=== PATIENT | female | born 1995 | race Caucasian/White ===

== ENCOUNTER 2019-08-16 22:21 | Emergency (ER) | payer OTHER, MEDICAID, SELFPAY ==
[2019-08-16 22:25] VITALS: BP 125/82; PULSE 116; RESP 22; TEMP 36.2; O2SAT 99
--- NOTE | 2019-08-16 22:48 | PC.NURSE ---
for the last 10 minutes the patient has been wispering to self. when asked who she is talking to she becomes silent and stares at staff. Further questioning has the same result. patient will not communicate with staff. Once left alone patient begins to whisper to self. Patient is in saftey scrubs with sitter at doorway.
--- NOTE | 2019-08-16 22:55 | PC.NURSE ---
patient asked her name and she responded in a mubling and rambling way that her name is Pat Swift, birthday is 1995, Patient then stated no, that's not it, no, I dont know.
--- NOTE | 2019-08-16 23:03 | PC.NURSE ---
Patient asked to give us a urine sample. Patient provided sample. Sample sent to the lab.
[2019-08-16 23:07] LABS: Appearance Urine UA SL CLOUDY; Bilirubin Urine UA NEGATIVE (NEGATIVE); Color Urine UA YELLOW; Glucose Urine UA NEGATIVE (Negative); Ketones Urine UA NEGATIVE (NEGATIVE); Leukocyte Esterase Urine UA TRACE (NEGATIVE); Nitrite Urine UA NEGATIVE (Negative); Occult Blood Urine UA 3+ (Negative); Protein Urine UA TRACE (Negative); Specific Gravity Urine UA >=1.030 (1.000-1.035); Urobilinogen Urine UA 0.2 E.U./dL (0.2)
--- NOTE | 2019-08-16 23:09 | ED.PSYCH ---
HPI - Psych General Chief Complaint: Psychiatric Symptoms Stated Complaint: brought by [employer] Time Seen by Provider: 08/16/19 22:50 Source: police Mode of arrival: Ambulatory Limitations: no limitations and other (Altered mental status) History of Present Illness HPI Narrative: 24-year-old female arrived by police department. They were called because the patient was reported to be standing in front of 1 of the local businesses. Supported by police that she had provided the name but it seems that this name has changed several times. She also provided a date this seemed to change. They are unsure exactly what her name or date is. They do not know this individual from prior contacts here in the area. Patient could not give a specific reason why she was in the area. She has very tangential thought saying things that she was from [place]. Saying things about other individuals to include boyfriend and family in the area. Patient seemed very confused. There is no signs of trauma. She was brought to the emergency department. Police provided the [facility] paperwork. Patient unable to provide any HPI. She was unable to provide a name. She did stated date however the month and the year remained constant however the date of changed multiple times. Related Data Allergies Allergy/AdvReac Type Severity Reaction Status Date / Time No Allergy Information Allergy Verified 08/16/19 22:31 Available Review of Systems Review of Systems Narrative: Review of systems limited by patient's mental condition. They reported review of systems below is what she was able/willing to answer Cardiovascular Cardiovascular: Denies chest pain and Denies dyspnea Respiratory Respiratory: Denies dyspnea Gastrointestinal Gastrointestinal: Denies abdominal pain Patient History Medical History (Updated 08/17/19 @ 11:53 by Grisel Christy MD) Medical history unknown (Acute) Social History Smoking Status: Current every day smoker tobacco type: cigarettes Substance Use Type: does not use Exam Initial Vital Signs Initial Vital Signs: Vital Signs Temperature 97.1 F L 08/16/19 22:25 Pulse Rate 116 H 08/16/19 22:25 Respiratory Rate 22 08/16/19 22:25 Blood Pressure 125/82 08/16/19 22:25 Pulse Oximetry 99 08/16/19 22:25 Const General: disheveled Orientation: awake and confused Limitations: altered mental status HENMT Head: normal to inspection and normocephalic Resp Effort & Inspection: normal respiratory effort Cardio Rate: tachycardic Skin Other: Multiple lesions in various stages of healing on her face and upper extremities no signs of infections Neuro General: alert and awake Cognition: abnormal cognition Speech: other (Pressured speech) Gait: normal gait Extrem General: normal to inspection Psych Appearance: disheveled Speech and Movement: agitated, pressured speech and restless Mood: euphoric mood, manic mood, paranoid, labile mood, angry and irritable mood Affect: animated and anxious affect Attitude: cooperative (Did allow us to draw blood obtain a urine sample) Thought Process: flight of ideas, illogical, perseverating and tangential Judgment: poor Course Orders Ordered: ED Orders 08/16/19 23:00 Test Urine Stat Urinalysis and Microscopic Stat urine tox [Urine Drug Screen, Rapid] Stat 08/16/19 23:02 Urine Drug Screen, Rapid Stat 08/16/19 23:09 Acetaminophen Stat Complete Blood Count AUTO DIFF Stat Comprehensive Metabolic Panel Stat Ethanol (ETOH) Stat Salicylate Stat Thyroid Stimulating Hormone Stat 08/16/19 23:25 UA Complete [Urinalysis and Microscopic] Stat Vital Signs Vital signs: Vital Signs - 8 hr 08/16/19 22:25 Temperature 97.1 F L Pulse Rate 116 H Respiratory Rate 22 Blood Pressure 125/82 Pulse Oximetry 99 MDM - Psych Lab Data Attestation: I reviewed the patient's lab results. Result diagrams: 08/16/19 23:09 08/16/19 23:09 Labs: Lab Results 08/16/19 08/16/19 08/16/19 Range/Units 23:00 23:00 23:00 WBC (4.5-11.0) X10^3/uL RBC (4.0-5.2) X10^6/uL Hgb (12.0-16.0) g/dL Hct (36-46) % MCV (80-100) fL MCH (26-34) PG MCHC (30-36) % RDW (11.6-14.8) % Plt Count (150-400) X10^3/uL Neut % (Auto) (50-75) % Lymph % (Auto) (25-40) % [place] % (Auto) (3-14) % Eos % (Auto) (2-4) % Baso % (Auto) (0-2) % Neut # (Auto) (3587-7372) /uL Lymph # (Auto) (8042-4912) /uL [place] # (Auto) (0-900) /uL Eos # (Auto) (0-450) /uL Baso # (Auto) (0-100) /uL Sodium (137-145) mmol/L Potassium (3.4-5.1) mmol/L Chloride (98-107) mmol/L Carbon Dioxide (22-32) mmol/L BUN (7-17) mg/dL Creatinine (0.52-1.04) mg/dL Estimated GFR (>60) mL/min BUN/Creatinine Ratio (6-22) Glucose (70-100) mg/dL Calcium (8.4-10.2) mg/dL Total Bilirubin (0.2-1.3) mg/dL AST (14-36) IU/L ALT (<35) IU/L Alkaline Phosphatase (38-126) U/L Total Protein (6.3-8.2) g/dL Albumin (3.5-5.0) g/dL Globulin (1.7-4.1) g/dL Albumin/Globulin Ratio (1.0-2.8) TSH (0.47-4.68) uIU/mL Urine Color Yellow Urine Appearance Sl cloudy Urine pH 5.0 (4.5-8.0) Ur Specific [place] >=1.030 H (1.000-1.035) Urine Protein Trace H (Negative) Urine Glucose (UA) Negative (Negative) g/dL Urine Ketones Negative (NEGATIVE) Urine Occult Blood 3+ H (Negative) Urine Nitrate Negative (Negative) Urine Bilirubin Negative (NEGATIVE) Urine Urobilinogen 0.2 (0.2) E.U./dL Ur Leukocyte Esterase Trace H (NEGATIVE) Urine RBC 1-5/hpf (0-5/HPF) Urine WBC 5-10/hpf H (0-5/HPF) Ur Squamous Epith Cells 5-10 /hpf H (0-5/HPF) Urine Bacteria Moderate (10-30) H (None) Urine Mucus 2+ H (Negative) Ur Culture Indicated? Cult not indicated Urine Test Negative (Negative) Salicylates (<20) mg/dL U Morph 300 ng/mL cutoff Negative (Negative) Ur Oxycodone Screen Negative (Negative) Urine Methadone Screen Negative (Negative) Acetaminophen (10-30) ug/mL Ur Barbiturates Screen Negative (Negative) U Tricyclic Antidepress Negative (Negative) Ur Phencyclidine Scrn Negative (Negative) Ur Amphetamines Screen Positive H (Negative) U Methamphetamines Scrn Positive H (Negative) Ur MDMA Scrn (Ecstasy) Positive H (Negative) U Benzodiazepines Scrn Negative (Negative) Urine Cocaine Screen Negative (Negative) U Marijuana (THC) Screen Positive H (Negative) Ethyl Alcohol ( - 10) mg/dL 08/16/19 08/16/19 08/16/19 Range/Units 23:09 23:09 23:09 WBC 8.9 (4.5-11.0) X10^3/uL RBC 4.49 (4.0-5.2) X10^6/uL Hgb 12.8 (12.0-16.0) g/dL Hct 38.2 (36-46) % MCV 85.1 (80-100) fL MCH 28.5 (26-34) PG MCHC 33.5 (30-36) % RDW 13.7 (11.6-14.8) % Plt Count 384 (150-400) X10^3/uL Neut % (Auto) 65.6 (50-75) % Lymph % (Auto) 18.1 L (25-40) % [place] % (Auto) 13.9 (3-14) % Eos % (Auto) 1.5 L (2-4) % Baso % (Auto) 0.9 (0-2) % Neut # (Auto) 5800 (2786-2779) /uL Lymph # (Auto) 1600 (8259-8566) /uL [place] # (Auto) 1200 H (0-900) /uL Eos # (Auto) 100 (0-450) /uL Baso # (Auto) 100 (0-100) /uL Sodium 138 (137-145) mmol/L Potassium 3.7 (3.4-5.1) mmol/L Chloride 99 (98-107) mmol/L Carbon Dioxide 29 (22-32) mmol/L BUN 22 H (7-17) mg/dL Creatinine 0.60 (0.52-1.04) mg/dL Estimated GFR > 60.0 (>60) mL/min BUN/Creatinine Ratio 36.7 H (6-22) Glucose 105 H (70-100) mg/dL Calcium 9.4 (8.4-10.2) mg/dL Total Bilirubin 0.4 (0.2-1.3) mg/dL AST 37 H (14-36) IU/L ALT 33 (<35) IU/L Alkaline Phosphatase 77 (38-126) U/L Total Protein 8.3 H (6.3-8.2) g/dL Albumin 4.8 (3.5-5.0) g/dL Globulin 3.5 (1.7-4.1) g/dL Albumin/Globulin Ratio 1.4 (1.0-2.8) TSH 1.18 (0.47-4.68) uIU/mL Urine Color Urine Appearance Urine pH (4.5-8.0) Ur Specific [place] (1.000-1.035) Urine Protein (Negative) Urine Glucose (UA) (Negative) g/dL Urine Ketones (NEGATIVE) Urine Occult Blood (Negative) Urine Nitrate (Negative) Urine Bilirubin (NEGATIVE) Urine Urobilinogen (0.2) E.U./dL Ur Leukocyte Esterase (NEGATIVE) Urine RBC (0-5/HPF) Urine WBC (0-5/HPF) Ur Squamous Epith Cells (0-5/HPF) Urine Bacteria (None) Urine Mucus (Negative) Ur Culture Indicated? Urine Test (Negative) Salicylates (<20) mg/dL U Morph 300 ng/mL cutoff (Negative) Ur Oxycodone Screen (Negative) Urine Methadone Screen (Negative) Acetaminophen < 10 L (10-30) ug/mL Ur Barbiturates Screen (Negative) U Tricyclic Antidepress (Negative) Ur Phencyclidine Scrn (Negative) Ur Amphetamines Screen (Negative) U Methamphetamines Scrn (Negative) Ur MDMA Scrn (Ecstasy) (Negative) U Benzodiazepines Scrn (Negative) Urine Cocaine Screen (Negative) U Marijuana (THC) Screen (Negative) Ethyl Alcohol < 10 ( - 10) mg/dL 08/16/19 Range/Units 23:09 WBC (4.5-11.0) X10^3/uL RBC (4.0-5.2) X10^6/uL Hgb (12.0-16.0) g/dL Hct (36-46) % MCV (80-100) fL MCH (26-34) PG MCHC (30-36) % RDW (11.6-14.8) % Plt Count (150-400) X10^3/uL Neut % (Auto) (50-75) % Lymph % (Auto) (25-40) % [place] % (Auto) (3-14) % Eos % (Auto) (2-4) % Baso % (Auto) (0-2) % Neut # (Auto) (7134-5259) /uL Lymph # (Auto) (2499-5358) /uL [place] # (Auto) (0-900) /uL Eos # (Auto) (0-450) /uL Baso # (Auto) (0-100) /uL Sodium (137-145) mmol/L Potassium (3.4-5.1) mmol/L Chloride (98-107) mmol/L Carbon Dioxide (22-32) mmol/L BUN (7-17) mg/dL Creatinine (0.52-1.04) mg/dL Estimated GFR (>60) mL/min BUN/Creatinine Ratio (6-22) Glucose (70-100) mg/dL Calcium (8.4-10.2) mg/dL Total Bilirubin (0.2-1.3) mg/dL AST (14-36) IU/L ALT (<35) IU/L Alkaline Phosphatase (38-126) U/L Total Protein (6.3-8.2) g/dL Albumin (3.5-5.0) g/dL Globulin (1.7-4.1) g/dL Albumin/Globulin Ratio (1.0-2.8) TSH (0.47-4.68) uIU/mL Urine Color Urine Appearance Urine pH (4.5-8.0) Ur Specific [place] (1.000-1.035) Urine Protein (Negative) Urine Glucose (UA) (Negative) g/dL Urine Ketones (NEGATIVE) Urine Occult Blood (Negative) Urine Nitrate (Negative) Urine Bilirubin (NEGATIVE) Urine Urobilinogen (0.2) E.U./dL Ur Leukocyte Esterase (NEGATIVE) Urine RBC (0-5/HPF) Urine WBC (0-5/HPF) Ur Squamous Epith Cells (0-5/HPF) Urine Bacteria (None) Urine Mucus (Negative) Ur Culture Indicated? Urine Test (Negative) Salicylates < 1.0 (<20) mg/dL U Morph 300 ng/mL cutoff (Negative) Ur Oxycodone Screen (Negative) Urine Methadone Screen (Negative) Acetaminophen (10-30) ug/mL Ur Barbiturates Screen (Negative) U Tricyclic Antidepress (Negative) Ur Phencyclidine Scrn (Negative) Ur Amphetamines Screen (Negative) U Methamphetamines Scrn (Negative) Ur MDMA Scrn (Ecstasy) (Negative) U Benzodiazepines Scrn (Negative) Urine Cocaine Screen (Negative) U Marijuana (THC) Screen (Negative) Ethyl Alcohol ( - 10) mg/dL MDM Narrative Medical decision making narrative: Patient's name was placed under a Paty Portillo because we could not confirm her exact name and date. She has no signs of trauma. She was willing to let us draw blood and obtain a urine sample. She was somewhat cooperative. Was very tangential in her speech. Was only willing/able to answer a few questions. She had very animated movements. At 1 point said something about hearing music but then recanted on this. Made multiple comments about her boyfriend and her parents. Made multiple contents about not being ?perfect? made a comment about having used heroin in the past but then ?switched ?to another drug. Denies taking any drugs in the past 24 hours. Does have multiple skin lesions in various stages of healing that are consistent with picking at her skin. There is no signs of cellulitis around this area. Her UDS is positive for methamphetamines and also ecstasy. Her symptoms today are somewhat consistent with the use of these drugs however she also has other findings that could be consistent with psychosis/schizophrenia. I do not feel that the patient has the capacity to make decisions. She has not attempted to leave the emergency department. Did discuss the case with the DCR who will come and evaluate the patient. I did have a discussion with the patient regarding taking medications to try to help her calm down. She denied wanting to take any of these medicines. She stated that she did not want a shot. I informed her that we could give her an oral medication (I was thinking something on the lines of Zyprexa are Ativan) the patient the again declined. Will continue to observe. Care turned over to day provider. Social work consult placed. DCR is aware the patient. If patient is more alert and oriented and can provide a name after she has slept overnight then we could potentially have a change in disposition. If she continues to be altered than DCR would be needed for evaluation of potential placement. Discharge Plan Departure Patient Disposition: Home Clinical Impression: Drug-induced psychotic disorder Qualifiers: Complication of substance-induced condition: with unspecified complication Qualified Code(s): F19.959 - Other psychoactive substance use, unspecified with psychoactive substance-induced psychotic disorder, unspecified Discharge Date/Time: 08/17/19 12:00 Instructions: DI for Drug Abuse and Drug Addiction Referrals: [facility] Jarrett Carter [Outside]
[2019-08-16 23:10] LABS: Ur Creatinine Normal (Normal); Ur Specific Gravity Normal (Normal); Urine pH Normal (Normal)
[2019-08-16 23:11] LABS: UR Morphine/Opiate cutoff 300 Negative (Negative); Urine Amphetamines Positive (Negative); Urine Barbiturates Negative (Negative); Urine Benzodiazepines Negative (Negative); Urine Cocaine Negative (Negative); Urine MDMA Positive (Negative); Urine Methadone Negative (Negative); Urine Methamphetamines Positive (Negative); Urine Oxycodone Negative (Negative); Urine Phencyclidine Negative (Negative); Urine Tetrahydrocannabinol Positive (Negative); Urine Tricyclic Antidepressant Negative (Negative)
[2019-08-16 23:14] LABS: RBC Urine 1-5/HPF (0-5/HPF); Squamous Epithelial Cell Urine 5-10 /HPF (0-5/HPF); WBC Urine 5-10/HPF (0-5/HPF)
[2019-08-16 23:15] LABS: Bacteria Urine Moderate (10-30); Culture Indicated Urine Cult Not Indicated; Mucus Urine 2+ (Negative)
--- NOTE | 2019-08-16 23:20 | PC.NURSE ---
required two staff to help patient tolerate a blood draw. Patient retracted away from one draw after insertion of butterfly needle. patient calm and cooperative with a second draw.
[2019-08-16 23:23] LABS: Add Manual Diff / Slide Review NO; Basophils Absolute Auto 100 /uL (0-100); Basophils Percent Auto 0.9 % (0-2); Eosinophils Absolute Auto 100 /uL (0-450); Eosinophils Percent Auto 1.5 % (2-4); Hematocrit 38.2 % (36-46); Hemoglobin 12.8 g/dL (12.0-16.0); Lymphocytes Absolute Auto 1600 /uL (1100-4500); Lymphocytes Percent Auto 18.1 % (25-40); Mean Corpuscular HGB Conc 33.5 % (30-36); Mean Corpuscular Hemoglobin 28.5 PG (26-34); Mean Corpuscular Volume 85.1 fL (80-100); Monocytes Absolute Auto 1200 /uL (0-900); Monocytes Percent Auto 13.9 % (3-14); Neutrophils Absolute Auto 5800 /uL (1500-7000); Neutrophils Percent Auto 65.6 % (50-75); Platelet Count 384 X10^3/uL (150-400); Red Blood Cell Count 4.49 X10^6/uL (4.0-5.2); Red Cell Distribution Width 13.7 % (11.6-14.8); White Blood Cell Count 8.9 X10^3/uL (4.5-11.0)
[2019-08-16 23:31] LABS: Pregnancy Test Urine Negative (Negative)
[2019-08-16 23:37] LABS: Salicylate < 1.0 mg/dL (<20)
[2019-08-16 23:38] LABS: Alanine Aminotransferase 33 IU/L (<35); Albumin 4.8 g/dL (3.5-5.0); Albumin Globulin Ratio 1.4 (1.0-2.8); Alkaline Phosphatase 77 U/L (38-126); Aspartate Aminotransferase 37 IU/L (14-36); BUN Creatinine Ratio 36.7 (6-22); Bilirubin Total 0.4 mg/dL (0.2-1.3); Blood Urea Nitrogen 22 mg/dL (7-17); Calcium 9.4 mg/dL (8.4-10.2); Carbon Dioxide 29 mmol/L (22-32); Chloride 99 mmol/L (98-107); Estimated Glomerular Filt Rate > 60.0 mL/min (>60); Globulin 3.5 g/dL (1.7-4.1); Glucose 105 mg/dL (70-100); HEMOLYSIS < 15 (0-50); Potassium 3.7 mmol/L (3.4-5.1); Sodium 138 mmol/L (137-145); Total Protein 8.3 g/dL (6.3-8.2)
[2019-08-16 23:45] LABS: Acetaminophen < 10 ug/mL (10-30)
[2019-08-16 23:50] LABS: Ethanol (ETOH) < 10 mg/dL
--- NOTE | 2019-08-16 23:50 | PC.NURSE ---
Addendum entered by Aracelis Martines CNA 08/17/19 00:08: Pt is asking to contact Felecia or Bill with [facility]. Pt is sitting on a stool in the doorway talking quietly to self. Original Note: Pt is rocking back and forth. Pt continues to stare directly at staff.
[2019-08-17 00:14] LABS: Thyroid Stimulating Hormone 1.18 uIU/mL (0.47-4.68)
--- NOTE | 2019-08-17 00:23 | PC.NURSE ---
per telephone call with [facility], HARLEY Groves will be called.
--- NOTE | 2019-08-17 00:26 | PC.NURSE ---
per conversation with [employer] all given names and birthdays have been run though their system with no results. Patient has spoken of [facility] and [facility]jay and [employer] called [place] who contacted surrounding law enforcment agencies with no identifecation made.
--- NOTE | 2019-08-17 00:54 | PC.NURSE ---
Pt was taken to the bathroom. After using the toilet she reached in to look for something and began to pull out the wet toilet paper. I told the pt to flush and wash her hands. She was compliant.
--- NOTE | 2019-08-17 00:54 | PC.NURSE ---
Per Germain SOUZA a call was made to Ian at [facility] to initiate intake process. Labs, notes and facesheet faxed to facility. Ian reports they will be unable to take the patient without a name and birthday. the patient gave a phone number for Bill [phone] however there was no answer. The patient states Marianela works nights there but is unable to verbalize where there is.
--- NOTE | 2019-08-17 01:10 | PC.NURSE ---
Pt is talking in a confused manner and now states her name is Melany Felicitas Douglass. She also said she is allergic to penicillin and Prednisone and that, One gives...makes me bite my tongue and one makes me freak out. Police was walking by and the pt began talking to her. Police were told of her new name given. Pt became more agitated. Pt asked for water was given it and is now standing anxiously in the doorway.
--- NOTE | 2019-08-17 01:29 | PC.NURSE ---
Called transfer center at [facility] and they searched names and birthdays given with different spellings and similar birthdays with no success to identify patient.
--- NOTE | 2019-08-17 01:37 | PC.NURSE ---
Pt gave me the phone number [phone] for a contact of Moris.
--- NOTE | 2019-08-17 02:29 | PC.NURSE ---
patient remains unable to give name, or other verifiable information. sitter at door.
--- NOTE | 2019-08-17 02:33 | PC.NURSE ---
patient allowed to sleep, sitter at door, respirations observed.
--- NOTE | 2019-08-17 02:42 | PC.NURSE ---
HARLEY hernandez evaluated patient. At this time [facility] is holding a bed for this patient in hopes that she will wake up in the morning and be able to give name and birthday.
--- NOTE | 2019-08-17 03:07 | PC.NURSE ---
Pt is laying down with eyes closed and having intermittent coughing episodes.
--- NOTE | 2019-08-17 03:53 | PC.NURSE ---
allowed to sleep, respirations observed, sitter at door
--- NOTE | 2019-08-17 04:09 | PC.NURSE ---
pt allowed to sleep, respirations observed, sitter at door
--- NOTE | 2019-08-17 04:39 | PC.NURSE ---
patient allowed to sleep, sitter at door. respirations observed.
--- NOTE | 2019-08-17 06:33 | PC.NURSE ---
Patient is awake. patient whispered the name Amber when asked what her name was. She stopped talking and stared past this nurse when further questioning about name, birthday, and if she remembered anything from the previous night. Provider aware.
[2019-08-17 06:40] VITALS: BP 112/54; PULSE 80; RESP 16; TEMP 36.2; O2SAT 98
--- NOTE | 2019-08-17 06:52 | PC.NURSE ---
Offered pt food, water and the bathroom. Pt was not responsive and just stared straight at me.
--- NOTE | 2019-08-17 07:30 | PC.NURSE ---
Pt asked to speak with nurse. Pt states she has a court date in [facility]. Asked the patient for name and so this RN could assist her. Pt states her name is Ghislaine Chapman. Pt was able to write her name and birthday so registration could update pt chart. Dr. Christy aware. Asked Dr. Christy to re-evaluate pt.
--- NOTE | 2019-08-17 07:43 | PC.NURSE ---
Offered pt water and a tuna fish sandwich. Pt started crying and pacing mumbling about her leg and how it hurt while punching the R leg. Pt would like to take a shower but has to wait a half hour until other Pt leaves via ambulance. Pt is currently eating sandwich rocking back and forth staring at nurses station. Pt is now pacing walking around bed.
--- NOTE | 2019-08-17 08:27 | PC.NURSE ---
Pt took a shower... while in the shower Pt started to cry then laugh, I managed to get pt to clam down. Pt brushed teeth in shower then started to brush eyes and toes with tooth brush. Toothbrush got taken away and replaced with a washcloth to have Pt not place toothbrush on eyes. After shower Pt dried self off then lightly tapped my arm and touched my necklace and told me that it was pretty, Then told me that she did not touch the F thing. I told Pt it was alright that Pt touched my necklace
--- NOTE | 2019-08-17 09:22 | PC.NURSE ---
PT was placing milk on body and saying that Pt's body (legs, arms, face, and groin area) needed to be moistened. I grabbed a towel and had the pt wipe off the excess milk, pt did so then got back into bed.
[2019-08-17 09:32] VITALS: BP 102/59; PULSE 88; TEMP 36.6
--- NOTE | 2019-08-17 09:45 | PC.NURSE ---
Pt. had to go to the bathroom so I opened the door. Pt started getting agitated and was squatting in the bathroom i told pt to sit and pt started yelling at me that they were sitting and started getting angry then started to say sorry.
--- NOTE | 2019-08-17 10:30 | PC.NURSE ---
Patient began to scream and cry out for help. APOLONIA Hansen responded first along with BRIELLE Santamaria. APOLONIA Franco and this RN also responded. Pt said 'get it out' and pointed to L ear. APOLONIA Franco was able to remove small plastic piece that was approximately 0.75 inches long. No bleeding noted. Pt no longer was screaming once the plastic piece was removed. Stretcher was removed from room, pt now sitting on mattress on floor. New blankets given. Pt asked to speak with physician, Dr. Christy aware.
--- NOTE | 2019-08-17 10:30 | PC.NURSE ---
Pt found a clear object and inserted it into ear and started to cry and get agitated, Nurse came and checked found a clear object instered into pt ear. Pt's bed ki and stool was taken out of room and has a mat on the floor. Pt is sittin rey the mat calmly watching staff.
--- NOTE | 2019-08-17 16:58 | CM.SWNOTE ---
PATTERN CHANGER AND REPAIRER Assessment: Received call from ED staff this AM requesting PATTERN CHANGER AND REPAIRER consult for 24yr old female brought in by [employer] last pm with altered mental status. Initially, limited information given by patient and patient was known as Paty Portillo This AM it was reports that patient has provided ED team with name and date of . At ED request PATTERN CHANGER AND REPAIRER reviewed chart and met with patient explained role. Patient alert and oriented at time of visit. Patient appears high at time of visit. Patient fidgeting and having difficulty with sentence structure. Patient reports that she does use meth patient indicates that she used to do heroin, but now only does smokes meth. Patient denies suicidal or homicidal ideation. Patient reports that she resides in [place] and would like to return there today. Patient has bus pass and reports that she can would like to return to familiar territory. Patient has had some exposure to 12 step programs and denies the need for any community resources. Spoke with MD and patient cleared to d/c home. RN updated. Provided patient with [facility] for addiction in case needed. P: Return to [place] today. MICHELE Smith PATTERN CHANGER AND REPAIRER - Construction Code Administrator Assessment PATTERN CHANGER AND REPAIRER - Construction Code Administrator Assessment Start: 08/17/19 16:50 Freq: Status: Active Protocol: Document 08/17/19 16:51 KJS (Rec: 08/17/19 16:58 KJS [id number]) PATTERN CHANGER AND REPAIRER/Construction Code Administrator Assessment Time Spent with Patient Start date 08/17/19 End date 08/17/19 Total Time With Patient 90 minutes Mental Health Screening Include Onset, Duration, Intensity Presenting Problem Altered mental status Precipitating Event(s) Patient brought in to ED by [employer] with altered mental status . Current Behavioral Health Provider(s) Patient appears to be 'high Include Facility, Provider, Ph. # on methamphetamines, marijuana , and ecstasy. Psych. Hx Mental Health and Chemical None Dependency Psychiatric Hospitalizations (date(s)/ None indicated by patient location) Substance Abuse Screening Include Onset, Duration, Intensity Presenting Problem Patient reports that she continues to be high on methamphetamines. Support System(s) Patient claims to have friends /suport network in [place]. Legal Concerns Legal Matters - Outstanding Issues Patient reports that she needs to be in court today. Mental Status Orientation (Person/Place/Time) Yes Affect Hyper Speech (Tfarff-Tzid-Dsxdzhg-Rapid-Soft- Rapid speech Loud-Pressured) Motor (Zbbkzg-Yqcweovzu-Qdhr-Other) Excessive motor skills Judgement (Intact-Impaired) Intact Impulse Control (Adequate-Impaired) Impaired due to substance abuse Memory (Teyjamcuq-Rpwwgr-Obvfap, Remote Impaired-Intact) Attention (Intact-Impaired) Impaired due to substance abuse Risk Assessment Suicidal Ideation (Plan) No Homicidal Ideation (Plan) No
== END 2019-08-17 12:00 | disposition home or self-care (01) ==
PROVIDERS: Emergency Medicine; Emergency Provider Emergency Medicine
DX: F19.959 Other psychoactive substance use, unspecified with psychoactive substance-induced psychotic disorder, unspecified (principal); R00.0 Tachycardia, unspecified
CPT/HCPCS: 36415; 80053; 80305; 80320; 80329; 81001; 81025; 84443; 85025; 99285; G0480